=== PATIENT | female | born 2000 | race Caucasian/White ===

== ENCOUNTER 2023-06-29 10:07 | Emergency (ER) | payer MEDICAID, SELFPAY ==
[2023-06-29 10:08] VITALS: BP 136/80; PULSE 120; RESP 20; TEMP 36.1; O2SAT 100; BMI 25.5
--- NOTE | 2023-06-29 11:26 | US_ITS ---
INDICATION: pelvic pain, H/O ovarian cyst EXAMINATION: Ultrasound US Transvaginal Non-OB TECHNIQUE: Transvaginal (for optimal evaluation of the adnexa) pelvic ultrasound was performed. Grayscale, spectral waveform, and color flow Doppler evaluation of the adnexa. COMPARISON: No relevant prior comparison study available FINDINGS: UTERUS: Anteverted. The uterus measures 7.7 x 4.2 x 3.5 cm. There is no uterine mass. The endometrial stripe measures 6 mm in AP diameter which is within normal limits. RIGHT OVARY: The right ovary measures 3.1 x 1.6 x 1.9 cm. Non-enlarged, normal echogenicity. There is normal arterial inflow and venous outflow present in the right ovary. LEFT OVARY: The left ovary measures 3 x 2.2 x 1.7 cm. There is a prominent follicle in the left ovary measuring about 1.5 cm. There is normal arterial inflow and venous outflow present in the left ovary. FREE FLUID: None. US/Transvaginal Non- IMPRESSION: Essentially unremarkable examination. Electronically Signed: Bean Romero MD at 12:42 EST ,
--- NOTE | 2023-06-29 11:28 | EX.ED.DYSGE1 ---
HPI History of Present Illness Chief Complaint: Complaint Informant: patient Narrative Narrative: Patient presents secondary to pelvic pain. She states she is not sure if she has a UTI or some other infection. Over the past 5 days she has had cramping and bloating with pain in her lower abdomen. She states it takes her 5 to 10 minutes to urinate because she will have stuttering of her urine stream. It does not necessarily hurt when she urinates and she has not noted any blood in her urine. She denies fever or chills. She does report a history of ovarian cysts but is not sure if this pain feels similar. PFSH PFS Medical History no medical history no medical history Allergy/AdvReac Type Severity Reaction Status Date / Time No Known Allergies Allergy Verified 06/29/23 10:08 Social History Smoking Status: Never smoker ROS ROS ED Constitutional Constitutional ED: Denies chills or fever(s) Eyes Eyes: Denies discharge from eye(s) ENT ENT ED: Denies discharge from eye(s), rhinorrhea or sore throat Cardiovascular Cardiovascular: Denies chest pain or palpitations Respiratory/Chest Respiratory/Chest: Denies cough or dyspnea Gastrointestinal Gastrointestinal: Reports abdominal pain; Denies diarrhea, nausea or vomiting Genitourinary Genitourinary ED: Reports difficulty urinating; Denies dysuria Musculoskeletal Musculoskeletal: Denies back pain or extremity pain Integumentary Denies Abrasions or rash Neurologic Neurologic: Denies headache(s) or weakness Psychiatric Psychiatric: Denies anxiety or depression Allergic/Immunologic Allergic/Immunologic ED: Denies lip swelling or urticaria EXAM Physical Exam Const Vital Signs: 06/29/23 10:08 06/29/23 12:09 Temperature 96.9 F L Temperature Source Temporal Pulse Rate 120 H 79 Respiratory Rate 20 H 14 Blood Pressure 136/80 H 112/64 Blood Pressure Mean 98 80 Pulse Ox 100 96 Oxygen Delivery Method Room Air Room Air Positive well nourished and well developed General Appearance ED: well developed HEENT Reports moist mucous membranes Eyes EOMs intact bilaterally Chest Wall inspection of chest normal and palpation of chest normal Resp normal respiratory effort and clear to auscultation bilaterally Cardio regular rate and regular rhythm GI GI Narrative: Abdomen soft with mild tenderness in the lower abdomen. No guarding or rebound. Palpation: soft Extremity normal to inspection Neuro oriented x3 and no sensory deficits noted Motor Exam: strength 5/5 throughout Psych mental status grossly normal Skin no rashes or lesions noted MDM MDM MDM Narrative Medical decision making narrative: Urinalysis obtained to evaluate for infection/hematuria. Urine obtained. Urine also sent for gonorrhea and chlamydia testing. Pelvic ultrasound obtained to evaluate for potential ovarian cyst. Lab Data Labs: Laboratory Results - last 24 hr 06/29/23 11:50 Urine Color Straw Urine Clarity Clear Urine pH 6.5 Ur Specific [place] 1.005 Urine Protein Negative Urine Glucose (UA) Normal Urine Ketones Negative Urine Occult Blood Negative Urine Nitrite Negative Urine Bilirubin Negative Urine Urobilinogen Normal Ur Leukocyte Esterase Negative Urine RBC 0 SEEN Urine WBC 0 SEEN Ur Squamous Epith Cells 0 SEEN Urine Bacteria 0 SEEN Urine Mucus 0 SEEN Urine Test Negative Radiography Diagnostic Testing: Clinical Impression(s) from Imaging Studies Transvaginal US 06/29/23 11:26 IMPRESSION: Essentially unremarkable examination. Electronically Signed: Bean Romero MD at 12:42 EST , Treatment and Re-Evaluation :: Urinalysis reveals no evidence of acute infection. test is negative. Urine was also sent for gonorrhea and chlamydia which is still pending. Pelvic ultrasound reveals no acute findings. Test results discussed with patient and family at bedside. She has been unhappy with her [employer] workups from her doctor in [place]. I will refer her locally for follow-up to establish new care. She was advised that if her gonorrhea or chlamydia test comes back positive she will be called to start appropriate treatment. Discharge Plan Triage Chief Complaint: Complaint ED Provider: Charito Estrella Dx/Rx/DC Orders Clinical Impression: Pelvic pain Instructions: ED Pelvic Pain, Unknown Cause Primary Care Provider: Care Physician,No Primary Referrals: Lexis Martinez MD [Med Staff - Active Staff] - As Needed Care Physician,No Primary [Primary Care Provider] - Disposition Disposition: Home, Self Care
[2023-06-29 11:55] LABS: Bacteria 0 SEEN /hpf (None Seen); Mucous, Urine 0 SEEN /hpf (<or=2+); Red Blood Cells-Urine 0 SEEN /hpf (0-5); Squamous Epithelial Cells - UA 0 SEEN /hpf (5-10); White Blood Cells 0 SEEN /hpf (0-5)
[2023-06-29 12:03] LABS: Color, Urine Straw (Yellow); Glucose, Dipstick Normal (Normal); Ketone-Dipstick Negative (Negative); Leukocyte Esterase-Dipstick Negative /ul (Negative); Nitrite-Dipstick Negative (Negative); Occult Blood-Urine Negative /ul (Negative); Protein-Dipstick Negative (Negative); Specific Gravity, Urine 1.005 (1.002-1.030); Urine Bilirubin Dipstick Negative (Negative); Urine Clarity Clear (Clear); Urine Urobilinogen Normal (Normal); Urine pH 6.5 (5.0 - 8.0)
[2023-06-29 12:08] LABS: Internal QC Validated? YES +Cl - CLEAR BKGD; Pregnancy, Urine Negative Negative; Record Kit Lot#,Urine Preg 718086
[2023-06-29 12:09] VITALS: BP 112/64; PULSE 79; RESP 14; O2SAT 96
--- OUTSIDE RECORDS SUMMARY | 2023-06-29 13:12 | XMS RPT_ITS | CCD ---
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 [employer] Name Role Phone Chucky Fine Unavailable Unavailable Sokari, Telemate Unavailable Unavailable Sokari, Telemate Unavailable Unavailable HART, IRIS K Unavailable Unavailable REFERRED, SELF Unavailable Unavailable CARRI LADD Unavailable Unavailable HART, IRIS K Unavailable Unavailable REFERRED, SELF Unavailable Unavailable HART, IRIS K Unavailable Unavailable No, Physician Primary Care Provider Unavailabl e No, Physician Primary Care Provider Unavailabl e No, Physician Primary Care Provider Unavailabl e NikosMaude cummins MD Primary Care Provider NO, PHYSICIAN Primary Care Unavailable JEZ MENG Attending Unavailable NIKOS, MAUDE Primary Care Unavailable JAY CHRISTOPHER Attending Unava ilable NikosMaude cummins MD Primary Care Provider NIKOS MAUDE Attending Unavailable NIKOS, MAUDE Primary Care Unavailable NIKOS, MAUDE Attending Unavailable NIKOS, MAUDE Primary Care Unavailable NIKOS, MAUDE Primary Care Unavailable BART, MELISSA N. Attending Unavailable NIKOS, MAUDE Referring Unavailable NIKOS, MAUDE Admitting Unavailable NIKOS, MAUDE Primary Care Unavailable BART, MELISSA N. Attending Unavailable NIKOS, MAUDE Primary Care Unavailable NIKOS, MAUDE Attending Unavailable NIKOS, MAUDE Admitting Unavailable NIKOS, MAUDE Primary Care Unavailable NIKOS, MAUDE Referring Unavailable NIKOS, MAUDE Attending Unavailable NIKOS, MAUDE Primary Care Unavailable BART, MELISSA N. Attending Unavailable BART, MELISSA N. Admitting Unavailable NIKOS, MAUDE Primary Care Unavailable NIKOS, MAUDE Primary Care Unavailable BART, MELISSA N. Attending Unavailable BART, MELISSA N. Admitting Unavailable NIKOS, MAUDE Referring Unavailable NIKOS, MAUDE Attending Unavailable NIKOS, MAUDE Primary Care Unavailable Free, Text Entry Unavailable Unavailable Kenya Márquez Unavailable Unavailabl e Pending, Provider Primary Care Unavailable KENYA MÁRQUEZ Attending Unavailable Medications Current Medications Medication Drug Class(es) Dates Sig (Normalized) Sig (Original) dicyclomine hydrochloride 10 mg oral capsule (8 sources) Anticholinergic Start: 04-01-2022 End: 04-01-2023 take 1 capsule by mouth four times daily before mealtime for constipation dicyclomine (BENTYL) 10 MG capsule Take 1 (one) capsule (10 mg total) by mouth 4 (four) times a day before meals and nightly FOR STOMACH (DIARRHEA/CONSTIP ATION) . 120 capsule 11 04/01/2022 04/01/2023 Active meloxicam 15 mg oral tablet (1 source) Nonsteroidal Anti-inflammatory Drug Start: 12-13-2018 End: 12-27-2018 take 1 tablet by mouth once daily meloxicam (MOBIC) 15 MG tablet Take 1 (one) tablet (15 mg total) by mouth daily for 14 days . 14 tablet 0 12/13/2018 12/27/2018 Active nitrofurantoin, macrocrystals 25 mg / nitrofurantoin, monohydrate 75 mg oral capsule (1 source) Nitrofuran Antibacterial Start: 11-26-2022 End: 12-02-2022 take 1 capsule by mouth twice daily at mealtime Macrobid 100 mg oral capsule ; 1 cap(s) orally 2 times a day x 7 days Quantity: 14 Refills: 0 Ordered: 26-Nov-2022 Kenya Márquez Start: 26-Nov-2022 End: 02-Dec-2022 Generic Substitution Allowed Comments: Finish all this medication unless otherwise directed by prescriber.May discolor urine or feces.Take with food or milk. Completed/Discontinued Medications Medication Drug Class(es) Dates Sig (Normalized) Sig (Original) Ethinyl Estradiol / norgestimate (2 sources) Progestin, Estrogen Start: 01-30-2020 End: 11-30-2021 take 1 tablet by mouth once daily Previfem 0.25-35 mg-mcg per tablet Take 1 tablet by mouth daily . 0 01/30/2020 11/30/2021 Discontinued Problems Active Problems Problem Classification Problem Date Documented Da te Episodic/Chronic Abdominal pain (5 sources) Unspecified abdominal pain; Translations: [Abdominal pain] Onset: 11-08-2021 Episodic Past or Other Problems Problem Classification Problem Date Documented Da te Episodic/Chronic Fluid and electrolyte disorders (2 sources) Hypokalemia; Translations: [Hypokalemia] Onset: 11-08-2021 Episodic Neoplasms of unspecified nature or uncertain behavior (12 sources) Thrombocytosis; Translations: [Thrombocytosis ] Onset: 11-30-2021 Episodic Other gastrointestinal disorders (11 sources) Diarrhea; Translations: [Diarrhea, unspecified] Onset: 11-30-2021 Episodic Unclassified (3 sources) Thrombocytosis, unspecified; Translations: [Thrombocytosis , unspecified] Onset: 11-08-2021 Results Test Name Value Interpretation Reference Range Facil ity Vital Signs Date Time Vital Sign Value Performing Clinician Facility 11-26-2022 23:08-0400 Diastolic blood pressure 59 mm[Hg] Text Entry [facility] 11-26-2022 23:08-0400 Heart rate 81 /min Text Entry [facility] 11-26-2022 23:08-0400 Respiratory rate 18 /min Text Entry [facility] 11-26-2022 23:08-0400 SaO2% (BldA) [Mass fraction] 98 % Text Entry [facility] 11-26-2022 23:08-0400 Systolic blood pressure 101 mm[Hg] Text Entry [facility] 11-26-2022 18:17-0400 Body height 154.9 cm Text Entry [facility] 11-26-2022 18:17-0400 Body temperature 97.34 [degF] Text Entry [facility] 11-26-2022 18:17-0400 Body weight 79.6 kg Text Entry [facility] 07-16-2022 15:24-0400 Body mass index (BMI) [Ratio] 30.42 kg/m2 Melissa Del Real MD Work Phone: [facility] 07-16-2022 15:24-0400 Body weight 73.03 kg Melissa Del Real MD Work Phone: [facility] 07-16-2022 15:24-0400 Diastolic blood pressure 72 mm[Hg] Melissa Del Real MD Work Phone: [facility] 07-16-2022 15:24-0400 Heart rate 78 /min Melissa Del Real MD Work Phone: [facility] 07-16-2022 15:24-0400 Systolic blood pressure 107 mm[Hg] Melissa Del Real MD Work Phone: [facility] 06-05-2022 10:02-0500 Body height 154.9 cm Melissa Del Real MD Work Phone: [facility] 06-05-2022 10:02-0500 Body mass index (BMI) [Ratio] 31.55 kg/m2 Melissa Del Real MD Work Phone: [facility] 06-05-2022 10:02-0500 Body weight 75.75 kg Melissa Del Real MD Work Phone: [facility] 06-05-2022 10:02-0500 Diastolic blood pressure 77 mm[Hg] Melissa Del Real MD Work Phone: [facility] 06-05-2022 10:02-0500 Heart rate 90 /min Melissa Del Real MD Work Phone: [facility] 06-05-2022 10:02-0500 Respiratory rate 14 /min Melissa Del Real MD Work Phone: [facility] 06-05-2022 10:02-0500 SaO2% (BldA) [Mass fraction] 98 % Melissa Del Real MD Work Phone: [facility] 06-05-2022 10:02-0500 Systolic blood pressure 109 mm[Hg] Melissa Del Real MD Work Phone: [facility] 04-01-2022 18:37-0500 Body height 154.9 cm Maude Knott MD Work Phone: [facility] 04-01-2022 18:37-0500 Body mass index (BMI) [Ratio] 32.39 kg/m2 Maude Knott MD Work Phone: [facility] 04-01-2022 18:37-0500 Body temperature 98.2 [degF] Maude Knott MD Work Phone: [facility] 04-01-2022 18:37-0500 Body weight 77.75 kg Maude Knott MD Work Phone: [facility] 04-01-2022 18:37-0500 Diastolic blood pressure 76 mm[Hg] Maude Knott MD Work Phone: [facility] 04-01-2022 18:37-0500 Heart rate 97 /min Maude Knott MD Work Phone: [facility] 04-01-2022 18:37-0500 Respiratory rate 16 /min Maude Knott MD Work Phone: [facility] 04-01-2022 18:37-0500 SaO2% (BldA) [Mass fraction] 98 % Maude Knott MD Work Phone: [facility] 04-01-2022 18:37-0500 Systolic blood pressure 114 mm[Hg] Maude Knott MD Work Phone: [facility] 02-25-2022 15:51-0400 Body height 154.9 cm Maude Knott MD Work Phone: [facility] 02-25-2022 15:51-0400 Body mass index (BMI) [Ratio] 32.88 kg/m2 Maude Knott MD Work Phone: [facility] 02-25-2022 15:51-0400 Body weight 78.93 kg Maude Knott MD Work Phone: [facility] 02-25-2022 15:51-0400 Diastolic blood pressure 63 mm[Hg] Maude Knott MD Work Phone: [facility] 02-25-2022 15:51-0400 Respiratory rate 16 /min Maude Knott MD Work Phone: [facility] 02-25-2022 15:51-0400 Systolic blood pressure 94 mm[Hg] Maude Knott MD Work Phone: [facility] 11-26-2021 14:48-0400 Body height 154.9 cm Maude Knott MD Work Phone: [facility] 11-26-2021 14:48-0400 Body mass index (BMI) [Ratio] 33.25 kg/m2 Maude Knott MD Work Phone: [facility] 11-26-2021 14:48-0400 Body temperature 98.4 [degF] Maude Knott MD Work Phone: [facility] 11-26-2021 14:48-0400 Body weight 79.83 kg Maude Knott MD Work Phone: [facility] 11-26-2021 14:48-0400 Diastolic blood pressure 70 mm[Hg] Maude Knott MD Work Phone: [facility] 11-26-2021 14:48-0400 Heart rate 87 /min Maude Knott MD Work Phone: [facility] 11-26-2021 14:48-0400 Respiratory rate 16 /min Maude Knott MD Work Phone: [facility] 11-26-2021 14:48-0400 SaO2% (BldA) [Mass fraction] 98 % Maude Knott MD Work Phone: [facility] 11-26-2021 14:48-0400 Systolic blood pressure 105 mm[Hg] Maude Knott MD Work Phone: [facility] 02-28-2020 13:05-0500 BMI (Body Mass Index) 36.86 kg/m2 Gin Ryan [facility] 02-28-2020 13:05-0500 Body Temperature 98.6 [degF] Gin Ryan [facility] 02-28-2020 13:05-0500 Body weight 88.5 kg Gin Ryan [facility] 02-28-2020 13:05-0500 BP Diastolic 83 mm[Hg] Gin Ryan [facility] 02-28-2020 13:05-0500 BP Systolic 131 mm[Hg] Gin Ryan [facility] 02-28-2020 13:05-0500 Height 154.9 cm Gin Ryan [facility] 02-28-2020 13:05-0500 Pulse (Heart Rate) 115 /min Gin Ryan [facility] 02-28-2020 13:05-0500 Pulse Oximetry 94 % Gin Ryan [facility] 12-13-2018 20:27-0400 Body Temperature 97.59 [degF] [facility] 12-13-2018 20:27-0400 BP Diastolic 74 mm[Hg] [facility] 12-13-2018 20:27-0400 BP Systolic 109 mm[Hg] [facility] 12-13-2018 20:27-0400 Pulse (Heart Rate) 105 /min [facility] 12-13-2018 20:27-0400 Pulse Oximetry 96 % [facility] 12-13-2018 20:25-0400 BMI (Body Mass Index) 30.23 kg/m2 [facility] 12-13-2018 20:25-0400 Body weight 72.58 kg [facility] 12-13-2018 20:25-0400 Height 154.9 cm [facility] Encounters Encounter Date Encounter Type Care Provider Facility Start: 11-26-2022 End: 11-26-2022 Emergency department patient visit [facility] Streetermuriel [facility] Emergency 05 Start: 09-03-2022 End: 09-03-2022 ambulatory MAUDELON KNOTT [facility] Start: 08-27-2022 Orders Only Melissa mcgregor MD Work Phone: [facility] Procedures Date Procedure Procedure Detail Performing Clinician Start: 11-26-2021 Blood smear peripheral interp phys w/writ report Maude Knott MD Work Phone: Start: 11-26-2021 Adult depression screening assessment Maude Knott MD Work Phone: Start: 02-28-2020 Blood smear peripheral interp phys w/writ report Gin Ryan Work Phone: Start: 12-14-2018 Choriogonadotropin ( test) [Presence] in Urine Montse Baez Work Phone: Plan of Treatment Date Care Activity Detail Author Start: 02-26-2032 Tetanus vaccination Tetanus: Every 1 0yrs [facility] Start: 02-25-2023 Hepatitis C screening Hepatitis C Sc reening [facility] Immunizations Immunization Date Immunization Notes Care Provider Fa cility 02-25-2022 diphtheria, tetanus toxoids and acellular pertussis vaccine, unspecified formulation Maude Knott MD Work Phone: [facility] 02-25-2022 Seasonal, quadrivale nt, recombinant, injectable influenza vaccine, preservative free Maude Knott MD Work Phone: [facility] 02-25-2022 tetanus toxoid, redu cassidy diphtheria toxoid, and acellular pertussis vaccine, adsorbed Maude Knott MD Work Phone: [facility] 02-25-2022 flu vac qv 2021,18yr up,rcm-PF (FLUBLOK QUAD) syringe Maude Knott MD Work Phone: [facility] Payers Date Payer Category Payer Unknown 2000 Unknown [id number] Self-pay [id number] Unknown [id number] Social History Date Type Detail Facility Start: 03-05-2020 End: 02-25-2022 Tobacco smoking status NHIS Never smoker [facility] Start: 03-05-2020 End: 02-25-2022 Tobacco use and exposure Never used [facility] Start: 03-05-2020 Alcohol intake Ex-drinker (finding) [facility] Start: 02-28-2020 History SDOH Alcohol Frequency 1 [facility] Start: 2000 [facility] Start: 11-16-2021 End: 07-16-2022 Exposure to SARS-CoV-2 (event) Not sure [facility] Start: 12-13-2018 Tobacco smoking status OKIS Unknown if ever smoked [facility] Start: 11-30-2021 End: 07-16-2022 Alcohol intake Current drinker of alcohol (finding) [facility] Start: 11-26-2021 History SDOH Alcohol Comment Weekend s [facility] Start: 02-28-2020 End: 11-26-2021 History of Social function [facility] Start: 02-28-2020 End: 11-26-2021 Alcohol Use Disorder Identification Test - Consumption [AUDIT-C] [facility] How often to you hav e a drink containing alcohol? Never [facility] Average Number of Drinks [facility] Start: 12-13-2018 Gender identity Identifies as female gender (finding) [facility] Start: 12-13-2018 Sexual orientation Heterosexual (jorge luis bo) [facility] Clinical Notes 11-26-2021 to 07-16-2022 Melissa Del Real MD - 07/16/2022 3:35 PM EDTPsayda Del Real MD - 06/05/2022 10:11 AM ESTTelephone Encounter - Jody Garcia MA - 05/05/2022 8:01 AM Michael Knott MD - 04/01/2022 6:58 PM EST Note Date & Type Note Facility 07-16-2022 History of Presen t illness Narrative PATIENT: Waldo Kaba : 2000 AGE: 21 y.o. SEX: female RACE: [1] PCP: Maude Knott MD REFERRAL: No ref. provider found PLACE OF SERVICE [x] OFFICE REVIEWED Chart Reviewed ROS Questionnaire Reviewed Colonoscopy Questionnaire HISTORIAN Source Patient Quality Good Accompanied by No one CC I still have diarrhea and constipation HPI Patient was initially seen on 06/05/2022: Patient states she has bowel issues for 2 years. It is not worsening. She has 2-3 diarrhea BM in a day then can go 3 days without a BM. She has tried Bentyl without much change. She has cut back on sweets. She drinks coffee with cream. She takes Marihuana daily because it makes her feel good and it helps with her anxiety and makes her eat. She denies fevers, chills, nausea, emesis, melena, recent weight loss, chest pain, shortness of breath, or bleeding dyscrasias. She presents to have her colonoscopy rescheduled. She denies any changes to her symptoms. Last C-scope Never Previous h/o colon polyps / CA No Previous colon surgery No Family h/o colon polyps / CA No ROS Systems Reviewed Constitutional, Eyes, ENT/Mouth, CV, Resp, GI, , MS, Skin, Neuro, Psych, Endo, Heme/Lymph, Breasts Symptoms Reviewed Fevers, chills, fatigue, recent weight loss, double vision, cataracts, difficulty swallowing, bloody noses, high blood pressure, chest pain or angina, heart rhythm problems, difficulty breathing with exertion, blood clots, leg swelling, shortness of breath, asthma, cough, sleep apnea, nausea, vomiting, constipation, diarrhea, blood in stools, abdominal pain, appetite changes, blood in urine, painful urination, frequent urination, urine infections, incontinence, arthritis, gout, rashes, skin cancer, seizures, syncope, stroke, weakness, depression, anxiety, high or low blood sugar, thyroid problems, anemia, lymph node enlargement, bleeding problems, breast pain, nipple discharge, breast mass Pertinent Pos Constipation, diarrhea, abdominal pain, urinary incontinence Pertinent Neg PMH / PSH Past Medical History: Diagnosis Date Anxiety Irritable bowel 03/02/2022 Menorrhagia Obesity (BMI 30-39.9) Thrombocytosis Urinary urgency No past surgical history on file. 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 Tobacco Use Smoking status: Never Smokeless tobacco: Never Vaping Use Vaping Use: Never used Substance and Sexual Activity Alcohol use: Yes Comment: Weekends Drug use: Yes Types: Marijuana Comment: daily Sexual activity: Yes Partners: Male MEDICATIONS Current Outpatient Medications Medication Instructions dicyclomine (BENTYL) 10 mg, Oral, 4 times daily before meals and nightly, FOR STOMACH (DIARRHEA/CONSTIPATION) flu vac qv 2021,18yr up,rcm-PF (FLUBLOK QUAD) syringe Sign this order in conjunction with the immunization order to satisfy [place] [employer] Positive ID requirements for immunization orders. ALLERGIES No Known Allergies EXAM Vitals BP 107/72 Pulse 78 Wt 73 kg (161 lb) BMI 30.42 kg/m Obesity Yes Const Alert, oriented, cooperative, pleasant, NAD HEENT AT/NC, Perr Neck no bruits Cor RRR, no murmurs Lungs clear to auscultation, no wheezes or rales Ext no UE or LE deformities Neuro no gross deficits Psych normal affect Skin / Other No obvious rashes LABS / RADIOLOGY Date: Wbc Hgb Hematocrit Plt Na K BUN Cr Glu AST ALT Alk Phos T. Bili Lipase Lactate Images reviewed personally and my interpretation is included below Other: ASSESSMENT / PLAN For Colonoscopy only: [] Screening low risk [] Screening high risk / surveillance [x] Diagnostic Altered bowel habits. Recommend colonoscopy. Diff Dx Polyps, diverticulosis, hemorrhoids, colitis, IBS, IBD, malignancy, etc. Chronic conditions Obesity, Anxiety Co-morbidities PMH/PSH Yes SH Yes Age No Anticoagulation No Other Risks Explained Bleeding, Infection, Risks of Anesthesia, Injury to the colon Anticipated Anesthesia MAC Morbidity risk (see co-morbidities above) Low to moderate Consent Risks / Rationale / Benefits / Alternatives discussed Yes Informed consent obtained Yes Questions Answered Yes Location [facility] Endoscopy ORDERS / F/U Bowel prep, schedule colonoscopy KSKT Problems Addressed & Their Complexity OP IP ER Self-limited minor. [] 2, 31 1 2,31 Acute Stable. [] 3 1 3 Uncomplicated. [] 3 1 3 Uncomplicated requiring hospital level of care. [] N/A 1 3 With systemic symptoms. [] 4 2 4 Complicated injury. [] 4 2 4 Chronic Stable. [] 3, 41 1, 21 3, 41 With exacerbation / progression / treatment side effects. [] 4 2 4 With severe exacerbation / progression / treatment side effects. [] 5 3 5 New undiagnosed with uncertain prognosis. [x] 4 2 4 Acute / Chronic that poses threat to life / bodily function. [] 5 3 5 1Select higher level if ?2 problems addressed Documentation: Altered bowel habits Risk of Management / Treatment OP IP ER Minimal. [] 2 1 2 Low (e.g. OTC drug management; Shared decision making regarding minor surgery without identified patient / procedure risk factors). [] 3 1 3 Moderate (e.g. Rx Drug management; Shared decision making regarding a) minor surgery with identified patient / procedure risk factors b) elective major surgery without identified patient / procedure risk factors; Diagnosis / Treatment significantly limited by Social Determinants of Health). [] 4 2 4 High (e.g. Rx Drug requiring intensive monitoring for toxicity; Extensive discussion regarding a diagnosis of malignancy and multiple treatment options (surgery, chemo, XRT including risks and benefits); Shared decision making regarding a) elective major surgery with identified patient / procedure risk factors b) emergency major surgery c) hospitalization; Decision for DNR or to de-escalate care because of poor prognosis). [x] 5 3 5 Documentation: Colonoscopy with risk of perforation [employer] rev. 04/26/2022 documented in this encounter [facility] 06-05-2022 History of Presen t illness Narrative PATIENT: Waldo Kaba : 2000 AGE: 21 y.o. SEX: female RACE: [1] PCP: Maude Knott MD REFERRAL: Maude Knott MD PLACE OF SERVICE [x] OFFICE REVIEWED Chart Reviewed ROS Questionnaire Reviewed Colonoscopy Questionnaire Reviewed HISTORIAN Source Patient Quality Good Accompanied by No one CC I have diarrhea and constipation HPI Patient states she has bowel issues for 2 years. It is not worsening. She has 2-3 diarrhea BM in a day then can go 3 days without a BM. She has tried Bentyl without much change. She has cut back on sweets. She drinks coffee with cream. She takes Marihuana daily because it makes her feel good and it helps with her anxiety and makes her eat. She denies fevers, chills, nausea, emesis, melena, recent weight loss, chest pain, shortness of breath, or bleeding dyscrasias. Last C-scope Never Previous h/o colon polyps / CA No Previous colon surgery No Family h/o colon polyps / CA No ROS Systems Reviewed Constitutional, Eyes, ENT/Mouth, CV, Resp, GI, , MS, Skin, Neuro, Psych, Endo, Heme/Lymph, Breasts Symptoms Reviewed Fevers, chills, fatigue, recent weight loss, double vision, cataracts, difficulty swallowing, bloody noses, high blood pressure, chest pain or angina, heart rhythm problems, difficulty breathing with exertion, blood clots, leg swelling, shortness of breath, asthma, cough, sleep apnea, nausea, vomiting, constipation, diarrhea, blood in stools, abdominal pain, appetite changes, blood in urine, painful urination, frequent urination, urine infections, incontinence, arthritis, gout, rashes, skin cancer, seizures, syncope, stroke, weakness, depression, anxiety, high or low blood sugar, thyroid problems, anemia, lymph node enlargement, bleeding problems, breast pain, nipple discharge, breast mass Pertinent Pos Constipation, diarrhea, abdominal pain, frequent urination, urinary incontinence Pertinent Neg PMH / PSH Past Medical History: Diagnosis Date Anxiety Irritable bowel 03/02/2022 Menorrhagia Obesity (BMI 30-39.9) Thrombocytosis Urinary urgency History reviewed. No pertinent surgical history. 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 Tobacco Use Smoking status: Never Smokeless tobacco: Never Vaping Use Vaping Use: Never used Substance and Sexual Activity Alcohol use: Yes Comment: Weekends Drug use: Yes Types: Marijuana Comment: daily Sexual activity: Yes Partners: Male MEDICATIONS Current Outpatient Medications Medication Instructions dicyclomine (BENTYL) 10 mg, Oral, 4 times daily before meals and nightly, FOR STOMACH (DIARRHEA/CONSTIPATION) flu vac qv 2021,18yr up,rcm-PF (FLUBLOK QUAD) syringe Sign this order in conjunction with the immunization order to satisfy [place] Board [employer] Pharm[employer] Positive ID requirements for immunization orders. ALLERGIES No Known Allergies EXAM Vitals BP 109/77 Pulse 90 Resp 14 Ht 5' 1 Wt 75.8 kg (167 lb) SpO2 98% BMI 31.55 kg/m Obesity Yes Const Alert, oriented, cooperative, pleasant, NAD HEENT AT/NC, Perr Neck no thyromegaly, no masses, no bruits Cor RRR, no murmurs Lungs clear to auscultation, no wheezes or rales Abd soft, NT, ND, no masses, no HSM, no peritoneal signs Hernia no abdominal wall hernias Musc / Back no CVA tenderness Ext no LE edema, no UE or LE deformities, normal pulses B LE's Neuro CN's grossly intact, no gross deficits Psych normal affect Lymph no neck LA Skin / Other No obvious rashes LABS / RADIOLOGY Date: Wbc Hgb Hematocrit Plt Na K BUN Cr Glu AST ALT Alk Phos T. Bili Lipase Lactate Images reviewed personally and my interpretation is included below Other: ASSESSMENT / PLAN For Colonoscopy only: [] Screening low risk [] Screening high risk / surveillance [x] Diagnostic Altered bowel habits. Recommend colonoscopy. Diff Dx Polyps, diverticulosis, hemorrhoids, colitis, IBS, IBD, malignancy, etc. Chronic conditions Obesity, Anxiety Co-morbidities PMH/PSH Yes SH Yes Age No Anticoagulation No Other Risks Explained Bleeding, Infection, Risks of Anesthesia, Injury to the colon Anticipated Anesthesia MAC Morbidity risk (see co-morbidities above) Low to moderate Consent Risks / Rationale / Benefits / Alternatives discussed Yes Informed consent obtained Yes Questions Answered Yes Location X [facility] ORDERS / F/U Bowel prep, schedule colonoscopy CODING TATE'S LIST Problems Addressed & Their Complexity OP IP ER Self-limited minor. [] 2, 31 1 2,31 Acute Stable. [] 3 1 3 Uncomplicated. [] 3 1 3 Uncomplicated requiring hospital level of care. [] N/A 1 3 With systemic symptoms. [] 4 2 4 Complicated injury. [] 4 2 4 Chronic Stable. [] 3, 41 1, 21 3, 41 With exacerbation / progression / treatment side effects. [] 4 2 4 With severe exacerbation / progression / treatment side effects. [] 5 3 5 New undiagnosed with uncertain prognosis. [x] 4 2 4 Acute / Chronic that poses threat to life / bodily function. [] 5 3 5 1Select higher level if ?2 problems addressed Documentation: Altered bowel habits Risk of Management / Treatment OP IP ER Minimal. [] 2 1 2 Low (e.g. OTC drug management; Shared decision making regarding minor surgery without identified patient / procedure risk factors). [] 3 1 3 Moderate (e.g. Rx Drug management; Shared decision making regarding a) minor surgery with identified patient / procedure risk factors b) elective major surgery without identified patient / procedure risk factors; Diagnosis / Treatment significantly limited by Social Determinants of Health). [] 4 2 4 High (e.g. Rx Drug requiring intensive monitoring for toxicity; Extensive discussion regarding a diagnosis of malignancy and multiple treatment options (surgery, chemo, XRT including risks and benefits); Shared decision making regarding a) elective major surgery with identified patient / procedure risk factors b) emergency major surgery c) hospitalization; Decision for DNR or to de-escalate care because of poor prognosis). [x] 5 3 5 Documentation: Colonoscopy with risk of perforation TRAKLOK rev. 04/26/2022 documented in this encounter [facility] 05-05-2022 Telephone encounter Note Form atting of this note might be different from the original. RECEIVED FAX FROM PHARMACY. REQUESTING REFILL ON QUEUED MEDICATION(S). LAST OV:02/25/2022 NEXT OV:05/18/2022 [facility] 05-05-2022 Miscellaneous Notes Formattin g of this note might be different from the original. RECEIVED FAX FROM PHARMACY. REQUESTING REFILL ON QUEUED MEDICATION(S). LAST OV:02/25/2022 NEXT OV:05/18/2022 documented in this encounter [facility] 04-04-2022 Evaluation + Plan note Associ ated Problem(s): Urge incontinence Prescribed oxybutinin- unfortunately pt only used 4 days Will get US completed [facility] 04-04-2022 Evaluation + Plan note Associ ated Problem(s): Irritable bowel FODMAPS diet provided for patient Bentyl prescribed I don't believe testing for celiac disease or food allergies is warranted at this time Advised pt to keep food diary [facility] 04-04-2022 Miscellaneous Notes Associate d Problem(s): Urge incontinence Prescribed oxybutinin- unfortunately pt only used 4 days Will get US completed Associated Problem(s): Irritable bowel FODMAPS diet provided for patient Bentyl prescribed I don't believe testing for celiac disease or food allergies is warranted at this time Advised pt to keep food diary documented in this encounter [facility] 04-01-2022 History of Presen t illness Narrative Assessment Assessment/Plan: Problem List Irritable bowel FODMAPS diet provided for patient Bentyl prescribed I don't believe testing for celiac disease or food allergies is warranted at this time Advised pt to keep food diary Urge incontinence - Primary Prescribed oxybutinin- unfortunately pt only used 4 days Will get US completed Relevant Orders US Transvaginal Return in about 6 weeks (around 05/13/2022). For any new medications prescribed today, patient was educated about indications for the medication, how to take the medication and potential side effects of the medications. Maude Knott MD [facility] [place] [address] [facility] [address] [facility] [id number] Dept: [phone] Subjective Chief Complaint Patient presents with Follow-up 6 week f/u HPI Waldo Kaba is a 21 y.o. female presenting for follow up Pelvic pressure- took oxybutinin 5mg for 3-4 days before losing medication. She would like to try this again. This started in the past 6 month(s). The problem has is unchanged. Associated symptoms include: pelvic pressure, dribbling, hesitency, urinary incontinece, urge to urinate. Pertinent negatives include: no previous pregnancies. No hx of prolapse. She has not tried physical therapy No pain associated with this. Worse with coughing. Diarrhea- likely IBS- has not been adhering to the FODMAPS diet. Has not kept food diary- states it occurs with any types of food, with or without gluten. She also states this happens with ice cream. She also states there are certain liquids which can cause this one day but then the next day she will be fine.Feels like she eats 'anything' and she will have urge to have BM. She has 3-4 BM everyday that are looser. No melena, hematochezia, weight loss, bloating, nausea, vomiting, no recent travel. She has not used any medications for this. She states her mother had similar problem (but she was diagnosed with diverticulosis). She denies any changes in her diet. Does not intake significant fiber. All pertinent positives and negatives are documented in ROS Patient's medications, allergies, past medical history, surgical history history, family history, social history were reviewed. Spent more than 20 minutes with patient, coordinating patient care, including reviewing charts and counseling patient. Past Medical History: Diagnosis Date Irritable bowel 03/02/2022 Menorrhagia History reviewed. No pertinent surgical history. Family History Problem Relation Age of Onset Anemia Mother Diverticulitis Mother Social History Tobacco Use Smoking status: Never Smokeless tobacco: Never Vaping Use Vaping Use: Never used Substance Use Topics Alcohol use: Yes Comment: Weekends Drug use: Yes Types: Marijuana Comment: daily No Known Allergies Patient's Medications New Prescriptions DICYCLOMINE (BENTYL) 10 MG CAPSULE Take 1 (one) capsule (10 mg total) by mouth 4 (four) times a day before meals and nightly FOR STOMACH (DIARRHEA/CONSTIPATION) . OXYBUTYNIN (DITROPAN-XL) 5 MG 24 HR TABLET For URINARY CONDITION Take 1 tab for 7 days, you can increase to twice daily if needed . Previous Medications FLU VAC QV 2021,18YR UP,RCM-PF (FLUBLOK QUAD) SYRINGE Sign this order in conjunction with the immunization order to satisfy [place] Board [employer] Pharmacy Positive ID requirements for immunization orders. . ONDANSETRON (ZOFRAN-ODT) 4 MG DISINTEGRATING TABLET Dissolve 1 (one) tablet (4 mg total) on top of tongue every 8 (eight) hours as needed . Modified Medications No medications on file Discontinued Medications OXYBUTYNIN (DITROPAN-XL) 5 MG 24 HR TABLET Take 1 (one) tablet (5 mg total) by mouth daily . Objective Vitals: 04/01/22 1837 BP: 114/76 BP Location: Left arm Patient Position: Sitting BP Cuff Size: X-large Adult Pulse: 97 Resp: 16 Temp: 98.2 F (36.8 C) TempSrc: Infrared SpO2: 98% Weight: 77.7 kg (171 lb 6.4 oz) Height: 5' 1 Estimated body mass index is 32.39 kg/m as calculated from the following: Height as of this encounter: 5' 1 . Weight as of this encounter: 77.7 kg (171 lb 6.4 oz). Physical Exam Vitals and nursing note reviewed. Constitutional: Appearance: Normal appearance. She is obese. HENT: Head: Normocephalic and atraumatic. Mouth/Throat: Mouth: Mucous membranes are moist. Pharynx: Oropharynx is clear. Eyes: Extraocular Movements: Extraocular movements intact. Conjunctiva/sclera: Conjunctivae normal. Pupils: Pupils are equal, round, and reactive to light. Cardiovascular: Rate and Rhythm: Normal rate and regular rhythm. Pulmonary: Effort: Pulmonary effort is normal. Breath sounds: Normal breath sounds. Abdominal: General: Abdomen is flat. Bowel sounds are normal. There is no distension. Palpations: Abdomen is soft. Tenderness: There is no abdominal tenderness. There is no guarding. Musculoskeletal: General: Normal range of motion. Skin: General: Skin is warm. Capillary Refill: Capillary refill takes less than 2 seconds. Neurological: General: No focal deficit present. Mental Status: She is alert and oriented to person, place, and time. Mental status is at baseline. Psychiatric: Attention and Perception: Attention and perception normal. Mood and Affect: Mood normal. Speech: Speech normal. Behavior: Behavior normal. Thought Content: Thought content normal. Cognition and Memory: Cognition and memory normal. Judgment: Judgment normal. PHQ9: JANETT-7 Tobacco Counseling: Counseling given: Not Answered documented in this encounter [facility] 03-02-2022 Instructions Maude Knott MD - 03/02/2022 8:18 AM EST Problem List Items Addressed This Visit Digestive Irritable bowel FODMAPS diet provided for patient I don't believe testing for celiac disease or food allergies is warranted at this time Other Urge incontinence oxybutinin prescribed Advised pt there may be an element of prolapse (however pt declined exam today) If sx do not improve, we can get transvaginal US or have pt follow up with OB if she's more comfortable Wellness examination - Primary Preventative Today we discussed: -Getting screening tests that you and your doctor decide on. Screening helps find diseases before any symptoms appear. -Eating healthy foods. Choose fruits, vegetables, whole grains, protein, and low-fat dairy foods. Limit fat, especially saturated fat. Reduce salt in your diet. -Limit alcohol. If you are a man, have no more than 2 drinks a day or 14 drinks a week. If you are a woman, have no more than 1 drink a day or 7 drinks a week. -Get at least 30 minutes of physical activity on most days of the week. -Reach and stay at a healthy weight. This will lower your risk for many problems, such as obesity, diabetes, heart disease, and high blood pressure. -Do not smoke or allow others to smoke around you. -Care for your mental health. It is easy to get weighed down by worry and stress. Learn strategies to manage stress, like deep breathing and mindfulness, and stay connected with your family and community. -Talk to your doctor about whether you have any risk factors for sexually transmitted infections (STIs). You can help prevent STIs if you wait to have sex with a new partner (or partners) until you've each been tested for STIs. It also helps if you use condoms (male or female condoms) and if you limit your sex partners to one person who only has sex with you. Vaccines are available for some STIs, such as HPV. -Use control if it's important to you to prevent . Talk with your doctor about the choices available and what might be best for you. -If you think you may have a problem with alcohol or drug use, talk to your doctor. This includes prescription medicines (such as amphetamines and opioids) and illegal drugs (such as cocaine and methamphetamine). Your doctor can help you figure out what type of treatment is best for you. -Protect your skin from too much sun. When you're outdoors from 10 a.m. to 4 p.m., stay in the shade or cover up with clothing and a hat with a wide brim. Wear sunglasses that block UV rays. Even when it's cloudy, put broad-spectrum sunscreen (SPF 30 or higher) on any exposed skin. -See a dentist one or two times If any referrals were placed at the time of your visit please allow 2 weeks for processing. If you haven't heard from anyone within 2 weeks please contact my office so we can look into the status of your referral. If you were given any labs today please ensure they are completed according to the directions given. Most normal results will be available through [employer] however if abnormal, you will be notified. Please allow 48-72 hours for review, and let you know what steps, if any, are needed next. If you haven't heard from us after that please call to inquire. If labs were ordered to be done PRIOR to your next visit we will discuss the results at the time of your office visit. If any procedures or imaging studies were ordered that must be prior authorized please give us 2 weeks to get them approved. Once approved someone should call you to schedule them or give you a date and time that they were scheduled for. If you haven't heard anything within 2 weeks of the office visit please call the office so we can look into their status. Customer Service/Billing Questions: [phone] MyChart Assistance: [phone] or [phone] Financial Assistance: [phone] or [phone] The following attachments cannot be sent through Care Everywhere.Diet: Low-FODMAP: General Info (Belarusian)documented in this encounter [facility] 03-02-2022 Evaluation + Plan note Associ ated Problem(s): Urge incontinence oxybutinin prescribed Advised pt there may be an element of prolapse (however pt declined exam today) If sx do not improve, we can get transvaginal US or have pt follow up with OB if she's more comfortable [facility] 03-02-2022 Miscellaneous Notes Associate d Problem(s): Urge incontinence oxybutinin prescribed Advised pt there may be an element of prolapse (however pt declined exam today) If sx do not improve, we can get transvaginal US or have pt follow up with OB if she's more comfortable Associated Problem(s): Irritable bowel FODMAPS diet provided for patient I don't believe testing for celiac disease or food allergies is warranted at this time Associated Problem(s): Wellness examination Preventative Today we discussed: -Getting screening tests that you and your doctor decide on. Screening helps find diseases before any symptoms appear. -Eating healthy foods. Choose fruits, vegetables, whole grains, protein, and low-fat dairy foods. Limit fat, especially saturated fat. Reduce salt in your diet. -Limit alcohol. If you are a man, have no more than 2 drinks a day or 14 drinks a week. If you are a woman, have no more than 1 drink a day or 7 drinks a week. -Get at least 30 minutes of physical activity on most days of the week. -Reach and stay at a healthy weight. This will lower your risk for many problems, such as obesity, diabetes, heart disease, and high blood pressure. -Do not smoke or allow others to smoke around you. -Care for your mental health. It is easy to get weighed down by worry and stress. Learn strategies to manage stress, like deep breathing and mindfulness, and stay connected with your family and community. -Talk to your doctor about whether you have any risk factors for sexually transmitted infections (STIs). You can help prevent STIs if you wait to have sex with a new partner (or partners) until you've each been tested for STIs. It also helps if you use condoms (male or female condoms) and if you limit your sex partners to one person who only has sex with you. Vaccines are available for some STIs, such as HPV. -Use control if it's important to you to prevent . Talk with your doctor about the choices available and what might be best for you. -If you think you may have a problem with alcohol or drug use, talk to your doctor. This includes prescription medicines (such as amphetamines and opioids) and illegal drugs (such as cocaine and methamphetamine). Your doctor can help you figure out what type of treatment is best for you. -Protect your skin from too much sun. When you're outdoors from 10 a.m. to 4 p.m., stay in the shade or cover up with clothing and a hat with a wide brim. Wear sunglasses that block UV rays. Even when it's cloudy, put broad-spectrum sunscreen (SPF 30 or higher) on any exposed skin. -See a dentist one or two times documented in this encounter [facility] 03-02-2022 Evaluation + Plan note Associ ated Problem(s): Irritable bowel FODMAPS diet provided for patient I don't believe testing for celiac disease or food allergies is warranted at this time [facility] 03-02-2022 Evaluation + Plan note Associ ated Problem(s): Wellness examination Preventative Today we discussed: -Getting screening tests that you and your doctor decide on. Screening helps find diseases before any symptoms appear. -Eating healthy foods. Choose fruits, vegetables, whole grains, protein, and low-fat dairy foods. Limit fat, especially saturated fat. Reduce salt in your diet. -Limit alcohol. If you are a man, have no more than 2 drinks a day or 14 drinks a week. If you are a woman, have no more than 1 drink a day or 7 drinks a week. -Get at least 30 minutes of physical activity on most days of the week. -Reach and stay at a healthy weight. This will lower your risk for many problems, such as obesity, diabetes, heart disease, and high blood pressure. -Do not smoke or allow others to smoke around you. -Care for your mental health. It is easy to get weighed down by worry and stress. Learn strategies to manage stress, like deep breathing and mindfulness, and stay connected with your family and community. -Talk to your doctor about whether you have any risk factors for sexually transmitted infections (STIs). You can help prevent STIs if you wait to have sex with a new partner (or partners) until you've each been tested for STIs. It also helps if you use condoms (male or female condoms) and if you limit your sex partners to one person who only has sex with you. Vaccines are available for some STIs, such as HPV. -Use control if it's important to you to prevent . Talk with your doctor about the choices available and what might be best for you. -If you think you may have a problem with alcohol or drug use, talk to your doctor. This includes prescription medicines (such as amphetamines and opioids) and illegal drugs (such as cocaine and methamphetamine). Your doctor can help you figure out what type of treatment is best for you. -Protect your skin from too much sun. When you're outdoors from 10 a.m. to 4 p.m., stay in the shade or cover up with clothing and a hat with a wide brim. Wear sunglasses that block UV rays. Even when it's cloudy, put broad-spectrum sunscreen (SPF 30 or higher) on any exposed skin. -See a dentist one or two times [facility] 02-25-2022 History of Presen t illness Narrative Assessment Assessment/Plan: Problem List Irritable bowel FODMAPS diet provided for patient I don't believe testing for celiac disease or food allergies is warranted at this time Urge incontinence oxybutinin prescribed Advised pt there may be an element of prolapse (however pt declined exam today) If sx do not improve, we can get transvaginal US or have pt follow up with OB if she's more comfortable Wellness examination - Primary Preventative Today we discussed: -Getting screening tests that you and your doctor decide on. Screening helps find diseases before any symptoms appear. -Eating healthy foods. Choose fruits, vegetables, whole grains, protein, and low-fat dairy foods. Limit fat, especially saturated fat. Reduce salt in your diet. -Limit alcohol. If you are a man, have no more than 2 drinks a day or 14 drinks a week. If you are a woman, have no more than 1 drink a day or 7 drinks a week. -Get at least 30 minutes of physical activity on most days of the week. -Reach and stay at a healthy weight. This will lower your risk for many problems, such as obesity, diabetes, heart disease, and high blood pressure. -Do not smoke or allow others to smoke around you. -Care for your mental health. It is easy to get weighed down by worry and stress. Learn strategies to manage stress, like deep breathing and mindfulness, and stay connected with your family and community. -Talk to your doctor about whether you have any risk factors for sexually transmitted infections (STIs). You can help prevent STIs if you wait to have sex with a new partner (or partners) until you've each been tested for STIs. It also helps if you use condoms (male or female condoms) and if you limit your sex partners to one person who only has sex with you. Vaccines are available for some STIs, such as HPV. -Use control if it's important to you to prevent . Talk with your doctor about the choices available and what might be best for you. -If you think you may have a problem with alcohol or drug use, talk to your doctor. This includes prescription medicines (such as amphetamines and opioids) and illegal drugs (such as cocaine and methamphetamine). Your doctor can help you figure out what type of treatment is best for you. -Protect your skin from too much sun. When you're outdoors from 10 a.m. to 4 p.m., stay in the shade or cover up with clothing and a hat with a wide brim. Wear sunglasses that block UV rays. Even when it's cloudy, put broad-spectrum sunscreen (SPF 30 or higher) on any exposed skin. -See a dentist one or two times Return in about 6 weeks (around 04/08/2022) for Follow up Chronic Conditions. For any new medications prescribed today, patient was educated about indications for the medication, how to take the medication and potential side effects of the medications. Maude Knott MD [facility] [address] [facility] [address] [place] [id number] Dept: [phone] Subjective Chief Complaint Patient presents with Annual Exam HPI Waldo Kaba is a 21 y.o. female presenting for annual exam Any concerns/complaints: Pelvic pressure- This is a new complaint. The current episode started in the past 6 month(s). The problem has is unchanged. Associated symptoms include: pelvic pressure, urinary incontinece, urge to urinate .Pertinent negatives include: no previous pregnancies. No hx of prolapse. She has not tried physical therapy No pain associated with this. Diarrhea- This is a new complaint. The current episode started since our last appt. Feels like she eats 'anything' and she will have urge to have BM. She has 3-4 BM everyday that are looser. No melena, hematochezia, weight loss, bloating, nausea, vomiting, no recent travel. She has not used any medications for this. She states her mother had similar problem (but she was diagnosed with diverticulosis). She denies any changes in her diet. Does not intake significant fiber. Preventative Today we discussed: -Getting screening tests that you and your doctor decide on. Screening helps find diseases before any symptoms appear. -Eating healthy foods. Choose fruits, vegetables, whole grains, protein, and low-fat dairy foods. Limit fat, especially saturated fat. Reduce salt in your diet. -Limit alcohol. If you are a man, have no more than 2 drinks a day or 14 drinks a week. If you are a woman, have no more than 1 drink a day or 7 drinks a week. -Get at least 30 minutes of physical activity on most days of the week. -Reach and stay at a healthy weight. This will lower your risk for many problems, such as obesity, diabetes, heart disease, and high blood pressure. -Do not smoke or allow others to smoke around you. -Care for your mental health. It is easy to get weighed down by worry and stress. Learn strategies to manage stress, like deep breathing and mindfulness, and stay connected with your family and community. -Talk to your doctor about whether you have any risk factors for sexually transmitted infections (STIs). You can help prevent STIs if you wait to have sex with a new partner (or partners) until you've each been tested for STIs. It also helps if you use condoms (male or female condoms) and if you limit your sex partners to one person who only has sex with you. Vaccines are available for some STIs, such as HPV. -Use control if it's important to you to prevent . Talk with your doctor about the choices available and what might be best for you. -If you think you may have a problem with alcohol or drug use, talk to your doctor. This includes prescription medicines (such as amphetamines and opioids) and illegal drugs (such as cocaine and methamphetamine). Your doctor can help you figure out what type of treatment is best for you. -Protect your skin from too much sun. When you're outdoors from 10 a.m. to 4 p.m., stay in the shade or cover up with clothing and a hat with a wide brim. Wear sunglasses that block UV rays. Even when it's cloudy, put broad-spectrum sunscreen (SPF 30 or higher) on any exposed skin. -See a dentist one or two times OBGYN HX LMP Jan 28 Pap smear: no- states she will follow up with her OB Stressors: financial concern and employment concern History of STDs? Yes- chlamydia. She has one partner for the last year- male. control? no Any breast concerns? no If smoking, ready to quit? not applicable Low dose CT chest: not applicable HIV testing:declined HCV testing: declined Immunizations: Flu: completed Tdap: completed Pneumonia shot: not applicable Patient Active Problem List Diagnosis Abnormal menses Thrombocytosis Diarrhea Irritable bowel Urge incontinence Wellness examination History reviewed. No pertinent surgical history. Family History Problem Relation Age of Onset Anemia Mother Diverticulitis Mother Social History Tobacco Use Smoking status: Never Smokeless tobacco: Never Vaping Use Vaping Use: Never used Substance Use Topics Alcohol use: Yes Comment: Weekends Drug use: Yes Types: Marijuana Comment: daily Patient's Medications New Prescriptions OXYBUTYNIN (DITROPAN-XL) 5 MG 24 HR TABLET Take 1 (one) tablet (5 mg total) by mouth daily . Previous Medications FLU VAC QV 2021,18YR UP,RCM-PF (FLUBLOK QUAD) SYRINGE Sign this order in conjunction with the immunization order to satisfy [place] Board [employer] Pharmacy Positive ID requirements for immunization orders. . Modified Medications No medications on file Discontinued Medications No medications on file Physical Exam: BP 94/63 (BP Location: Right arm, Patient Position: Sitting, BP Cuff Size: Adult) Pulse (P) 72 Temp (P) 98.3 F (36.8 C) (Temporal) Resp 16 Ht 5' 1 Wt 78.9 kg (174 lb) SpO2 (P) 98% BMI 32.88 kg/m Wt Readings from Last 3 Encounters: 02/25/22 78.9 kg (174 lb) 11/26/21 79.8 kg (176 lb) 11/08/21 79.8 kg (176 lb) BP Readings from Last 3 Encounters: 02/25/22 94/63 11/26/21 105/70 11/08/21 124/77 Physical Exam Vitals and nursing note reviewed. 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 Constitutional: Appearance: Normal appearance. She is obese. HENT: Head: Normocephalic and atraumatic. Mouth/Throat: Mouth: Mucous membranes are moist. Pharynx: Oropharynx is clear. Eyes: Extraocular Movements: Extraocular movements intact. Conjunctiva/sclera: Conjunctivae normal. Pupils: Pupils are equal, round, and reactive to light. Cardiovascular: Rate and Rhythm: Normal rate and regular rhythm. Pulmonary: Effort: Pulmonary effort is normal. Breath sounds: Normal breath sounds. Abdominal: General: Abdomen is flat. Bowel sounds are normal. There is no distension. Palpations: Abdomen is soft. Tenderness: There is no abdominal tenderness. There is no guarding. Musculoskeletal: General: Normal range of motion. Cervical back: Normal range of motion. Skin: General: Skin is warm. Capillary Refill: Capillary refill takes less than 2 seconds. Neurological: General: No focal deficit present. Mental Status: She is alert and oriented to person, place, and time. Mental status is at baseline. Psychiatric: Attention and Perception: Attention and perception normal. Mood and Affect: Mood normal. Speech: Speech normal. Behavior: Behavior normal. Thought Content: Thought content normal. Cognition and Memory: Cognition and memory normal. Judgment: Judgment normal. Health Maintenance Due Topic Date Due Pap Smear Never done HPV Vaccines (1 - 2-dose series) Never done PHQ9: JANETT-7 Tobacco Counseling: Counseling given: Not Answered Current Outpatient Medications Medication Sig Dispense Refill flu vac qv 2021,18yr up,rcm-PF (FLUBLOK QUAD) syringe Sign this order in conjunction with the immunization order to satisfy [place] Board [employer] Pharmacy Positive ID requirements for immunization orders. . 0.5 mL 0 oxybutynin (DITROPAN-XL) 5 MG 24 hr tablet Take 1 (one) tablet (5 mg total) by mouth daily . 30 tablet 11 No current facility-administered medications for this visit. Assessment/Plan: Problem List Items Addressed This Visit Digestive Irritable bowel FODMAPS diet provided for patient I don't believe testing for celiac disease or food allergies is warranted at this time Other Urge incontinence oxybutinin prescribed Advised pt there may be an element of prolapse (however pt declined exam today) If sx do not improve, we can get transvaginal US or have pt follow up with OB if she's more comfortable Wellness examination - Primary Preventative Today we discussed: -Getting screening tests that you and your doctor decide on. Screening helps find diseases before any symptoms appear. -Eating healthy foods. Choose fruits, vegetables, whole grains, protein, and low-fat dairy foods. Limit fat, especially saturated fat. Reduce salt in your diet. -Limit alcohol. If you are a man, have no more than 2 drinks a day or 14 drinks a week. If you are a woman, have no more than 1 drink a day or 7 drinks a week. -Get at least 30 minutes of physical activity on most days of the week. -Reach and stay at a healthy weight. This will lower your risk for many problems, such as obesity, diabetes, heart disease, and high blood pressure. -Do not smoke or allow others to smoke around you. -Care for your mental health. It is easy to get weighed down by worry and stress. Learn strategies to manage stress, like deep breathing and mindfulness, and stay connected with your family and community. -Talk to your doctor about whether you have any risk factors for sexually transmitted infections (STIs). You can help prevent STIs if you wait to have sex with a new partner (or partners) until you've each been tested for STIs. It also helps if you use condoms (male or female condoms) and if you limit your sex partners to one person who only has sex with you. Vaccines are available for some STIs, such as HPV. -Use control if it's important to you to prevent . Talk with your doctor about the choices available and what might be best for you. -If you think you may have a problem with alcohol or drug use, talk to your doctor. This includes prescription medicines (such as amphetamines and opioids) and illegal drugs (such as cocaine and methamphetamine). Your doctor can help you figure out what type of treatment is best for you. -Protect your skin from too much sun. When you're outdoors from 10 a.m. to 4 p.m., stay in the shade or cover up with clothing and a hat with a wide brim. Wear sunglasses that block UV rays. Even when it's cloudy, put broad-spectrum sunscreen (SPF 30 or higher) on any exposed skin. -See a dentist one or two times Return in about 6 weeks (around 04/08/2022) for Follow up Chronic Conditions. For any new medications prescribed today, patient was educated about indications for the medication, how to take the medication and potential side effects of the medications. Maude Knott MD documented in this encounter [facility] 11-30-2021 Instructions Maude Knott MD - 11/30/2021 8:04 PM EDT Problem List Items Addressed This Visit Hematopoietic and Hemostatic Thrombocytosis - Primary Has been evaluated by hematology previously Highest platelet count was 520-- most recently it is 450 Will get peripheral blood smear It seems to be trending down over the last year Once we receive peripheral smear report, we can verify if additional testing is required No red flag sx at this time Relevant Orders CBC and Differential (Completed) Comprehensive Metabolic Panel (Completed) Pathology Consult (Completed) HIV Antibody (HIV1/HIV2) (Completed) Other Abnormal menses Noted changes in her menstrual cycle 1 year ago Previously it used to last 7-10 days and now it will last 3-4 days No excessive bleeding, no large blood clots She is not taking control- last time she took it was at age 14 for 1 year Will get LH/FSH level Relevant Orders Luteinizing Hormone (Completed) Follicle Stimulating Hormone (Completed) Diarrhea Likely viral gastroenteritis -sx have completely resolved -hypokalemia has resolved No acute complaints If any referrals were placed at the time of your visit please allow 2 weeks for processing. If you haven't heard from anyone within 2 weeks please contact my office so we can look into the status of your referral. If you were given any labs today please ensure they are completed according to the directions given. Most normal results will be available through [employer] however if abnormal, you will be notified. Please allow 48-72 hours for review, and let you know what steps, if any, are needed next. If you haven't heard from us after that please call to inquire. If labs were ordered to be done PRIOR to your next visit we will discuss the results at the time of your office visit. If any procedures or imaging studies were ordered that must be prior authorized please give us 2 weeks to get them approved. Once approved someone should call you to schedule them or give you a date and time that they were scheduled for. If you haven't heard anything within 2 weeks of the office visit please call the office so we can look into their status. Customer Service/Billing Questions: [phone] [employer] Assistance: [phone] or [phone] Financial Assistance: [phone] or [phone] documented in this encounter [facility] 11-30-2021 Evaluation + Plan note Associ ated Problem(s): Thrombocytosis Has been evaluated by hematology previously Highest platelet count was 520-- most recently it is 450 Will get peripheral blood smear It seems to be trending down over the last year Once we receive peripheral smear report, we can verify if additional testing is required No red flag sx at this time [facility] 11-30-2021 Miscellaneous Notes Associate d Problem(s): Thrombocytosis Has been evaluated by hematology previously Highest platelet count was 520-- most recently it is 450 Will get peripheral blood smear It seems to be trending down over the last year Once we receive peripheral smear report, we can verify if additional testing is required No red flag sx at this time Associated Problem(s): Abnormal menses Noted changes in her menstrual cycle 1 year ago Previously it used to last 7-10 days and now it will last 3-4 days No excessive bleeding, no large blood clots She is not taking control- last time she took it was at age 14 for 1 year Will get LH/FSH level Associated Problem(s): Diarrhea Likely viral gastroenteritis -sx have completely resolved -hypokalemia has resolved No acute complaints documented in this encounter [facility] 11-30-2021 Evaluation + Plan note Associ ated Problem(s): Abnormal menses Noted changes in her menstrual cycle 1 year ago Previously it used to last 7-10 days and now it will last 3-4 days No excessive bleeding, no large blood clots She is not taking control- last time she took it was at age 14 for 1 year Will get LH/FSH level [facility] 11-30-2021 Evaluation + Plan note Associ ated Problem(s): Diarrhea Likely viral gastroenteritis -sx have completely resolved -hypokalemia has resolved No acute complaints [facility] 11-26-2021 History of Presen t illness Narrative Assessment Assessment/Plan: Problem List Abnormal menses Noted changes in her menstrual cycle 1 year ago Previously it used to last 7-10 days and now it will last 3-4 days No excessive bleeding, no large blood clots She is not taking control- last time she took it was at age 14 for 1 year Will get LH/FSH level Relevant Orders Luteinizing Hormone (Completed) Follicle Stimulating Hormone (Completed) Thrombocytosis - Primary Has been evaluated by hematology previously Highest platelet count was 520-- most recently it is 450 Will get peripheral blood smear It seems to be trending down over the last year Once we receive peripheral smear report, we can verify if additional testing is required No red flag sx at this time Relevant Orders CBC and Differential (Completed) Comprehensive Metabolic Panel (Completed) Pathology Consult (Completed) HIV Antibody (HIV1/HIV2) (Completed) Diarrhea Likely viral gastroenteritis -sx have completely resolved -hypokalemia has resolved No acute complaints Return in about 3 months (around 02/26/2022) for Annual Exam. For any new medications prescribed today, patient was educated about indications for the medication, how to take the medication and potential side effects of the medications. Maude Knott MD [facility] [address] [facility] [address] [facility] [id number] Dept: [phone] Subjective Chief Complaint Patient presents with [facility] follow up HPI Waldo Kaba is a 21 y.o. female with a PMHx of menorrhagia presenting as a new pt to the clinic today She presented to the ER on 11/08/21 for generalized abd pain, nausea and diarrhea. She was hypokalemic and was noted to have platelet count of 450. She received fluid bolus and was advised to follow up w/ PCP. Today she states her abd pain and diarrhea has subsided completely. She denies any nausea, vomiting, fever, chills, or fatigue. She is not sure why she is here today- states her platelet counts have been elevated before and this has been a long standing issue. Menstrual cycle- menarche was at age 9. She started control tablets at age 14 and took it for 1 year. She states until last year, her menstrual cycle lasted 7-10 days and could be irregular. Now it lasts 3-4 days only and it is regular. LMP was November 09. She uses 5-6 tampons a day during her cycle. She denies soaking through her tampons and denies any passage of large clots, no hirsutism, no worsening abd cramping, excessive bruising or adenopathy. After chart review it seems like she followed up w/ Dr Ryan for menorrhagia and peripheral blood smear was reviewed. It seemed like this was more reactive and we could follow up w/ CBC. Her highest platelet count was 520. She denies any hx of iron deficeingy anemia. She was previously taking iron supplements 1-2 years ago but discontinued use. All pertinent positives and negatives are documented in ROS Patient's medications, allergies, past medical history, surgical history history, family history, social history were reviewed. Spent more than 30 minutes with patient, coordinating patient care, including reviewing charts and counseling patient. Past Medical History: Diagnosis Date Menorrhagia History reviewed. No pertinent surgical history. Family History Problem Relation Age of Onset Anemia Mother Diverticulitis Mother Social History Tobacco Use Smoking status: Never Smokeless tobacco: Never Vaping Use Vaping Use: Never used Substance Use Topics Alcohol use: Yes Comment: Weekends Drug use: Yes Types: Marijuana Comment: daily No Known Allergies Patient's Medications New Prescriptions No medications on file Previous Medications No medications on file Modified Medications No medications on file Discontinued Medications PREVIFEM 0.25-35 MG-MCG PER TABLET Take 1 tablet by mouth daily . Review of Systems Constitutional: Negative for appetite change, chills, diaphoresis, fatigue, fever and unexpected weight change. Eyes: Negative for visual disturbance. Respiratory: Negative for cough, shortness of breath and wheezing. Cardiovascular: Negative for chest pain and palpitations. Gastrointestinal: Negative for abdominal pain, blood in stool, constipation, diarrhea, nausea and vomiting. Genitourinary: Positive for menstrual problem. Negative for difficulty urinating, dyspareunia, dysuria, flank pain, frequency, hematuria, pelvic pain and vaginal pain. Skin: Negative for pallor. Neurological: Negative for dizziness, weakness, light-headedness and headaches. Hematological: Negative for adenopathy. Does not bruise/bleed easily. Objective Vitals: 11/26/21 1448 BP: 105/70 BP Location: Right arm Patient Position: Sitting BP Cuff Size: X-large Adult Pulse: 87 Resp: 16 Temp: 98.4 F (36.9 C) TempSrc: Temporal SpO2: 98% Weight: 79.8 kg (176 lb) Height: 5' 1 Estimated body mass index is 33.25 kg/m as calculated from the following: Height as of this encounter: 5' 1 . Weight as of this encounter: 79.8 kg (176 lb). Physical Exam Vitals and nursing note reviewed. Constitutional: Appearance: Normal appearance. She is obese. HENT: Head: Normocephalic and atraumatic. Mouth/Throat: Mouth: Mucous membranes are moist. Pharynx: Oropharynx is clear. Eyes: Extraocular Movements: Extraocular movements intact. Conjunctiva/sclera: Conjunctivae normal. Pupils: Pupils are equal, round, and reactive to light. Cardiovascular: Rate and Rhythm: Normal rate and regular rhythm. Pulmonary: Effort: Pulmonary effort is normal. Breath sounds: Normal breath sounds. Abdominal: General: Abdomen is flat. Bowel sounds are normal. Palpations: Abdomen is soft. Musculoskeletal: General: Normal range of motion. Cervical back: Normal range of motion. Skin: General: Skin is warm. Capillary Refill: Capillary refill takes less than 2 seconds. Neurological: General: No focal deficit present. Mental Status: She is alert and oriented to person, place, and time. Mental status is at baseline. Psychiatric: Attention and Perception: Attention and perception normal. Mood and Affect: Mood normal. Speech: Speech normal. Behavior: Behavior normal. Thought Content: Thought content normal. Cognition and Memory: Cognition and memory normal. Judgment: Judgment normal. PHQ9: Over the last 2 weeks, how often have you been bothered by any of the following problems? Little interest or pleasure in doing things: Not at all Feeling down, depressed, or hopeless: Not at all PHQ-2 Total Score: 0 Trouble falling or staying asleep, or sleeping too much: Several days Feeling tired or having little energy: Several days Poor appetite or overeating: Several days Feeling bad about yourself - or that you are a failure or have let yourself or your family down: Not at all Trouble concentrating on things, such as reading the newspaper or watching television: Not at all Moving or speaking so slowly that other people could have noticed. Or the opposite - being so fidgety or restless that you have been moving around a lot more than usual: Not at all Thoughts that you would be better off , or of hurting yourself in some way: Not at all PHQ-9 Total Score: 3 If you checked off any problems, how difficult have these problems made it for you to do your work, take care of things at home, or get along with other people?: Somewhat difficult JANETT-7 Over the last 2 weeks, how often have you been bothered by the following problems? Feeling nervous, anxious or on edge: Over half the days Not being able to stop or control worrying: Over half the days Worrying too much about different things: Over half the days Trouble relaxing: Several days Being so restless that it is hard to sit still: Not at all Becoming easily annoyed or irritable: Over half the days Feeling afraid as if something awful might happen: Not at all JANETT-7 Score: 9 Tobacco Counseling: Counseling given: Not Answered Depression Screening 11/26/2021 Little interest or pleasure in doing things 0 Feeling down, depressed, or hopeless 0 PHQ-2 Total Score 0 Trouble falling or staying asleep, or sleeping too much 1 Feeling tired or having little energy 1 Poor appetite or overeating 1 Feeling bad about yourself - or that you are a failure or have let yourself or your family down 0 Trouble concentrating on things, such as reading the newspaper or watching television 0 Moving or speaking so slowly that other people could have noticed. Or the opposite - being so fidgety or restless that you have been moving around a lot more than usual 0 Thoughts that you would be better off , or of hurting yourself in some way 0 PHQ-9 Total Score 3 If you checked off any problems, how difficult have these problems made it for you to do your work, take care of things at home, or get along with other people? Somewhat difficult Depression Screening 11/26/2021 Little interest or pleasure in doing things 0 Feeling down, depressed, or hopeless 0 PHQ-2 Total Score 0 Trouble falling or staying asleep, or sleeping too much 1 Feeling tired or having little energy 1 Poor appetite or overeating 1 Feeling bad about yourself - or that you are a failure or have let yourself or your family down 0 Trouble concentrating on things, such as reading the newspaper or watching television 0 Moving or speaking so slowly that other people could have noticed. Or the opposite - being so fidgety or restless that you have been moving around a lot more than usual 0 Thoughts that you would be better off , or of hurting yourself in some way 0 PHQ-9 Total Score 3 If you checked off any problems, how difficult have these problems made it for you to do your work, take care of things at home, or get along with other people? Somewhat difficult documented in this encounter [facility] Wellness examination- Primary Irritable bowel syndrome, unspecified type Urge incontinence [facility] Diagnosis Urge incontinence- Primary Irritable bowel syndrome, unspecified type [facility] Diagnosis Abnormal pelvic ultrasound- Primary [facility] Diagnosis Left ovarian cyst- Primary Other and unspecified ovarian cyst [facility] Diagnosis Abnormal pelvic ultrasound- Primary [facility] Diagnosis Altered bowel habits- Primary Irritable bowel syndrome, unspecified type Altered bowel habits- Primary Altered bowel habits [facility] Diagnosis Altered bowel habits- Primary Altered bowel habits- Primary Altered bowel habits [facility] Diagnosis Altered bowel habits- Primary Altered bowel habits documented in this encounter [facility] Summary Purpose Family History No Family History Records FoundNo Family History Records FoundNo Family History Records FoundNo Family History Records FoundNo Family History Records FoundNo Family History Records Found Advance Directives No Advanced Directives Records FoundDocuments on File Type Date Recorded 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 female with a past medical history of menorrhagia who is being seen by hematology/oncology for thrombocytosis. Patient presents to the clinic today accompanied by her mother and states that she does not really understand why she needed this evaluation. She states that overall she feels well and her only point of concern is her abnormal periods. She reports that for the past 6 months she has had very irregular and at times extremely heavy menstrual cycles. She describes passing large amounts of blood and clots during some of these episodes. She has recently been seenat women[facility] care and was prescribed low-dose OCP for control of menorrhagia. Otherwise, she denies any other complaints, pain or discomfort at this time. She is employed at [employer] and denies any limitations to her work or ADLs. She is a lifelong non-smoker, drinks very rarely and smokes marijuana very rarely and denies any other illicit substance abuse. She denies any personal history of prior VTE's. Review of systems is negative for any flushing, itching especially after hot shower, lower extremity edema, shortness of breath, chest pain, palpitations or headaches. Past Medical History: Diagnosis Date Menorrhagia History reviewed. No pertinent surgical history. Family History Problem Relation Age of Onset Anemia Mother Hypertension Father Social History Socioeconomic History Marital status: Single Spouse name: Not on file Number of children: Not on file Years of education: Not on file Highest education level: Not on file Occupational History Not on file Social Needs Financial resource strain: Not on file Food insecurity Worry: Not on file Inability: Not on file Transportation needs Medical: Not on file Non-medical: Not on file Tobacco Use Smoking status: Never Smoker Smokeless tobacco: Never Used Substance and Sexual Activity Alcohol use: Not Currently Frequency: Never Drug use: Yes Types: Marijuana Sexual activity: Not on file Lifestyle Physical activity Days per week: Not on file Minutes per session: Not on file Stress: Not on file Relationships Social connections Talks on phone: Not on file Gets together: Not on file Attends anabaptist service: Not on file Active member of club or organization: Not on file Attends meetings of clubs or organizations: Not on file Relationship status: Not on file Other Topics Concern Not on file Social History Narrative Not on file No Known Allergies Current Outpatient Medications Medication Sig Dispense Refill Previfem 0.25-35 mg-mcg per tablet Take 1 tablet by mouth daily . No current facility-administered medications for this visit. Review of Systems: A Complete review of systems was performed and is negative except for what is listed in the HPI Physical Exam: PACU Vitals 02/28/20 1305 BP: 131/83 Pulse: (!) 115 Temp: 98.6 F (37 C) SpO2: 94% ECOG 0 Gen: Obese female, NAD, resting comfortably HEENT: NCAT, no temporal wasting, anicteric sclerae, mmm, no op lesions Neck: supple, no thyromegaly or LAD Lymphatics: no cervical, axillary, or inguinal adenopathy Chest: CTAB, no w/r/r, no respiratory distress CV: RRR, no m/r/g, normal S1, S2 Abd: soft, nontender, nondistended, +BS, no hepatosplenomegaly Ext: wwp, no c/c/e Skin: no rashes or lesions Neuro: Alert and oriented x4, no focal deficits, moves all four extremities, strength and sensationintact throughout Psych: Mood normal, affect normal. Labs: Lab Results Component Value Date WBC 9.52 02/28/2020 HGB 13.0 02/28/2020 HCT 41.5 02/28/2020 MCV 93.9 02/28/2020 PLT 500 (H) 02/28/2020 RBC 4.42 02/28/2020 No results found for: GLUCOSE, CALCIUM, NA, K, CL, BUN, CREATININE No results found for: ALT, AST, GGT, ALKPHOS, BILITOT Assessment & Recommendations: Waldo Kaba is a 19 y.o. female with a past medical history of menorrhagia who is being seen by hematology/oncology for thrombocytosis. 1. Thrombocytosis (HCC) Patient denies any symptoms associated with elevated platelet counts and per review of available records the highest platelet count I have seen is 517 K from 02/01/20. Patient is very concerned about the cost of this visit as she is self- pay and does not have insurance. Based on history and exam my clinical impression is that her elevated platelet counts are likely reactive, possibly due to who relative iron deficiency caused by heavy menstrual bleeding. Keeping in mind the financial toxicities I recommend only the following work-up after this visit. - CBC and Differential; Future - Pathology Blood Smear Consult Unless there are major abnormalities identified on the peripheral smear, I would not recommend further work-up aside from periodic CBC check which can be done by her primary care physician. She may also benefit from oral iron supplementation until her menstrual cycles become more regular. If her platelets continue to rise even after control of her menorrhagia from OCP therapy, I would recommend further work-up at that time. Patient can call to schedule follow-up visit as needed Education Provided Education/Instructions given to: (x) Patient (_) Spouse (x) Parent (_) Other Barriers to Learning: (x) None (_) Yes (identify):_ Content: (x) Refer to note above (_)Other (identify):_ Evaluation/Outcome: (x) Verbalized understanding (_) Demonstrated understanding (_) Other:_ Gin Ryan MD *Portions of this chart was created using Sitem[employer]her voice recognition software. Occasional wrong-word or sound-like substitutions may have occurred due to inherent limitations of the voice recognitionsoftware. Please read the chart carefully and recognize, using context, where the substitutions have occurred. documented in this encounter Assessments Diagnosis Thrombocytosis (HCC)- Primary Essential thrombocythemia Diagnosis Carpal tunnel syndrome of right wrist- Primary Discharge Instructions * Attachments The following attachments cannot be sent through Care Everywhere. * Carpal Tunnel Syndrome (Belarusian) * Carpal Tunnel Syndrome: Exercises (Belarusian) documented in this encounter Reason for Referral Specialty Diagnoses / Procedures Referred By Cristina alfonso Referred To Contact Radiology Diagnoses Urge incontinence Procedures US Transvaginal Maude Knott MD [address] [address] [address] [place] [address] Referral ID Status Reason Start Date Expiration Date V isits Requested Visits Authorized [id number] Authorized 04/01/2022 04/01/2023 1 1 Specialty Diagnoses / Procedures Referred By Cristina alfonso Referred To Contact Radiology Diagnoses Abnormal pelvic ultrasound Procedures MR Pelvis Without Contrast Maude Knott MD [address] [address] Referral ID Status Reason Start Date Expiration Date V isits Requested Visits Authorized [id number] Pending Review 05/04/2022 05/04/2023 1 1 Specialty Diagnoses / Procedures Referred By Contac t Referred To Contact Gynecology Diagnoses Left ovarian cyst Maude Knott MD [address] [address] Carlos Pollack MD [address] [address] Referral ID Status Reason Start Date Expiration Date Visits Requested Visits Authorized [id number] Pending Review Specialty Services Required/Pat ient's Best Interest 05/04/2022 05/04/2023 1 1 Specialty Diagnoses / Procedures Referred By Contac t Referred To Contact Radiology Diagnoses Abnormal pelvic ultrasound Procedures MR Pelvis With And Without Contrast Maude Knott MD [address] [address] [address] [place] [address] Referral ID Status Reason Start Date Expiration Date V isits Requested Visits Authorized [id number] Pending Review 05/27/2022 05/27/2023 1 1 Additional Source Comments INFORMATION SOURCE (unrecogn ized section and content) DATE CREATED AUTHOR AUTHOR'S ORGANIZ ATION 12/25/2017 [facility] DATE CREATED AUTHOR AUTHOR'S ORGANIZ ATION 04/02/2022 [facility] DATE CREATED AUTHOR AUTHOR'S ORGANIZ ATION 07/20/2022 [facility] DATE CREATED AUTHOR AUTHOR'S ORGANIZ ATION 09/06/2022 [facility] DATE CREATED AUTHOR AUTHOR'S ORGANIZ ATION 12/14/2022 [facility] Reason for Visit (unrecogniz ed section and content) Reason Comments Numbness Reason Comments Establish Care ER follow up Reason Comments Annual Exam Reason Comments Follow-up 6 week f/u Reason Onset Date Comments Medication Refill 05/05/2022 Reason Comments Consult Abdominal pain, bloa ting, constipation to diarrhea Specialty Diagnoses / Procedures Referred By Cristina alfonso Referred To Contact General Surgery Diagnoses Irritable bowel syndrome, unspecified type Maude Knott MD [address] [address] Faye Lambert MD [facility] [place] [address] Referral ID Status Reason Start Date Expiration Date Visits Re quested Visits Authorized [id number] Closed 05/19/2022 05/19/2023 1 1 Reason Comments Follow-up Update H & P for col onoscopy Demarco Hatch RN - 12/13/2018 11:08 PM EDDemarco Dinh RN - 12/13/2018 9:58 PM EDTFCullen motta RN - 12/13/2018 8:22 PM EDT ED Notes (unrecognized secti on and content) DC instructions given. Verbal understanding. All questions answered. Ambulated to exit. Steady gait. In bed. No distress. Breathing even and unlabored. No needs. Will continue to monitor. SRx1. Call light in reach. Patient complains of numbness to right arm and hand that has been constant for the last month. documented in this encounter Care Teams (unrecognized sec tion and content) [employer] Relationship Specialty Start Date End Date Maude Knott MD [address] [address] PCP - General Internal Medicine 11/26/21 [employer] Relationship Specialty Start Date End Date Maude Knott MD [address] [address] PCP - General Internal Medicine 11/26/21 [employer] Relationship Specialty [place] [address] [place] [address] PCP - General Internal Medicine 11/26/21 [employer] Relationship Specialty Start Date End Date Maude Knott MD [address] [place] [address] PCP - General Internal Medicine 11/26/21 [employer] Relationship Specialty Start Date End Date Maude Knott MD [address] [place] [address] PCP - General Internal Medicine 11/26/21 [employer] Relationship Specialty Start Date End Date Maude Knott MD [address] [place] [address] PCP - General Internal Medicine 11/26/21 [employer] Relationship Specialty Start Date End Date Maude Knott MD [address] [place] [address] PCP - General Internal Medicine 11/26/21 [employer] Relationship Specialty Start Date End Date Maude Knott MD [address] [place] [address] PCP - General Internal Medicine 11/26/21 [employer] Relationship Specialty Start Date End Date Maude Knott MD [address] [place] [address] PCP - General Internal Medicine 11/26/21 <item> Privacy Markings (unrecogniz ed section and content) Section Author: Belle Campos PROHIBITION ON REDISCLOSURE OF CONFIDENTIAL INFORMATION This notice accompanies a disclosure of information concerning a client made to you with the consent of such client. FOR RECORDS PERTAINING TO PATIENTS WHO ARE OR HAVE BEEN ENROLLED IN A CHEMICAL DEPENDENCY/SUBSTANCEABUSE PROGRAM, SOME INFORMATION MAY BE OMITTED. This clinical summary was aggregated from multiple sources. Caution should be exercised in using it in the provision of clinical care. This summary normalizes information from multiple sources, and as a consequence, information in this document may materially change the coding, format and clinical context of patient data. In addition, data may be omitted in some cases. CLINICAL DECISIONS SHOULD BE BASED ON THE PRIMARY CLINICAL RECORDS. [employer] [facility]. provides no warranty or guarantee of the accuracy or completeness of information in this document.
[2023-06-29 14:00] VITALS: BP 118/71; PULSE 64; RESP 16; TEMP 36.4; O2SAT 99
== END 2023-06-29 14:03 | disposition home or self-care (01) ==
PROVIDERS: Emergency Provider Emergency Medicine; Visit Provider Emergency Medicine
DX: R10.2 Pelvic and perineal pain (principal)
CPT/HCPCS: 76830; 81001; 81025; 87491; 87591; 99282